=== PATIENT | male | born 1980 | race Caucasian/White ===

== ENCOUNTER 2024-10-27 07:11 | Observation (INO) | payer OTHER, SELFPAY ==
--- NOTE | ~2024-10-27 | CT_ITS ---
EXAMINATION: CT abdomen pelvis w con DATE: 10/27/2024 10:40 INDICATION: Rectal pain. TECHNIQUE: Computed tomography (CT) of the abdomen and pelvis was performed with 100 mL Omnipaque 350 intravenous contrast. Automated exposure control and iterative reconstruction technique were employe d. The dose-length product was 781.00 mGy-cm. COMPARISON: None. FINDINGS: The visualized portions of the lung bases are clear without pneumonia or pleural effusion. The heart size is normal. No pericardial effusion. There is a small sliding hiatal hernia. The liver, gallbladder, spleen, pancreas, adrenal glands, and left kidney are normal. There is a 5 mm cyst in r ight kidney. There are no dilated loops of bowel. The appendix is normal. There is a 1.8 x 1.3 x 1.3 cm perianal abscess. There are no pathologically enlarged lymph nodes. There is no free intraperitone al fluid. There is mild thoracic and lumbar spondylosis. IMPRESSION: 1. 1.8 x 1.3 x 1.3 cm perianal abscess. Reviewed, dictated and finalized at location A. P [facility]ILLER
[2024-10-27 07:24] VITALS: BP 123/84; PULSE 118; RESP 18; TEMP 36.3; O2SAT 96
[2024-10-27] MEDS: ACETAMINOPHEN 500 MG TABLET 1000 MG PO (09:34)
[2024-10-27] MEDS: KETOROLAC 15 MG/ML VIAL (*BKC) IV PUSH (09:35)
[2024-10-27 09:44] LABS: Basophils Percent Auto 0.2 % (0.2-1.2); Eosinophils Absolute Auto 0.1 K/mm3 (0-0.3); Eosinophils Percent Auto 0.5 % (0-4.4); Hematocrit 43.3 % (42.0-52.0); Hemoglobin 14.6 g/dL (14.0-18.0); Immature Granulocyte Absolute 0.06 K/mm3 (0.00-0.031); Immature Granulocyte Percent A 0.4 % (0-0.5); Lymphocytes Absolute Auto 1.46 K/mm3 (0.9-3.2); Lymphocytes Percent Auto 10.3 % (18.3-44.2); Mean Corpuscular HGB Conc 33.7 g/dl (32-36); Mean Corpuscular Hemoglobin 30.4 pg (26-34); Mean Platelet Volume 9.4 fl (7.4-10.4); Monocytes Percent Auto 6.8 % (2.6-8.5); Neutrophils Absolute Auto 11.6 K/mm3 (1.3-6.7); Neutrophils Percent Auto 81.8 % (45.5-73.1); Platelet Count Result 262 k/mm3 (150-375); Red Blood Count 4.81 M/mm3 (4.6-6.20); Red Cell Distribution Width 12.4 % (11.5-14.5); White Blood Count 14.1 K/mm3 (4.5-10.0)
[2024-10-27 10:11] LABS: Alanine Aminotransferase 55 U/L (6-50); Albumin Level 4.2 g/dL (3.5-5.1); Alkaline Phosphatase 82 U/L (38-126); Anion Gap 10 mmol/L (4-12); Aspartate Amino Transferase 39 U/L (17-59); Bilirubin,Total 0.8 mg/dL (0.2-1.3); Blood Urea Nitrogen 12 mg/dL (9-20); Carbon Dioxide 24 mmol/L (22-30); Chloride 106 mmol/L (98-107); Estimated CRCL calculation 111 ml/min; Estimated Glomerular Filt Rate > 60; Glucose 121 mg/dL (65-110); Potassium 4.3 mmol/L (3.4-5.0); Sodium 140 mmol/L (137-145)
[2024-10-27 10:20] VITALS: BP 135/80; PULSE 79; RESP 18; O2SAT 96
[2024-10-27 10:42] VITALS: BP 142/68; PULSE 82; RESP 18; O2SAT 96
--- NOTE | 2024-10-27 11:01 | ED_ITS ---
HPI - General Adult General Chief complaint: Unspecified Stated complaint: Rectal pain Time Seen by Provider: 10/27/24 07:52 History of Present Illness HPI narrative: This is a 44-year-old male presenting ED with chief complaint of rectal pain. Over the last 2 days patient is reporting pain in his rectum. He is not having any bleeding or hemorrhoids that he is aware of. He denies fevers chills or abdominal pain. Last bowel movement was 2 days ago. Related Data Allergies Allergy/AdvReac Type Severity Reaction Status Date / Time No Known Allergies Allergy Verified 10/27/24 09:33 Exam Narrative: APPEARANCE: No apparent distress. Head: atraumatic. EYES: EOMI, NOSE: Atraumatic NECK: Trachea midline RESPIRATORY: No increased rate of breathing CARDIOVASCULAR: RRR, ABDOMINAL: Non-distended , soft nontender rectal exam: erythema and tenderness on the rectum. No visible hemorrhoids. MUSCULOSKELETAl: No obvious deformities NEURO: Alert. Moving 4/4 extremities SKIN:: Warm, dry. Normal color PSYCHIATRIC: Normal affect Course Vital Signs Vital signs: Vital Signs Temperature 97.4 F L 10/27/24 07:24 Pulse Rate 118 H 10/27/24 07:24 Respiratory Rate 18 10/27/24 07:24 Blood Pressure 123/84 10/27/24 07:24 Pulse Oximetry 96 10/27/24 07:24 Oxygen Delivery Room Air 10/27/24 07:24 Temperature 97.4 F L 10/27/24 07:24 Pulse Rate 82 10/27/24 10:42 Respiratory Rate 18 10/27/24 10:42 Blood Pressure 142/68 H 10/27/24 10:42 Pulse Oximetry 96 10/27/24 10:42 Oxygen Delivery Room Air 10/27/24 07:24 Medical Decision Making [facility] Narrative Medical decision making narrative: -Course: 44-year-old male presenting with rectal pain. CT abdomen pelvis shows a perianal abscess. White count is elevated at 14. Patient tachycardic at 120 on arrival. Given 30 cc/kilogram fluid resusc, abx, and pain control. Consult placed to generalsurgery. patient will be admitted for further management. -DDX includes but is not limited to: perianal cellulitis, jose e-anal abscess, hemorrhoids, colitis -Independent interpretation of studies: labs imaging/ reviewed -Discussion of Management/Consultants: Gilbert -Shared decision making / Disposition: admitted. Vital Signs Vital Signs: Vital Signs Temperature 97.4 F L 10/27/24 07:24 Pulse Rate 118 H 10/27/24 07:24 Respiratory Rate 18 10/27/24 07:24 Blood Pressure 123/84 10/27/24 07:24 Pulse Oximetry 96 10/27/24 07:24 Oxygen Delivery Room Air 10/27/24 07:24 Temperature 97.4 F L 10/27/24 07:24 Pulse Rate 82 10/27/24 10:42 Respiratory Rate 18 10/27/24 10:42 Blood Pressure 142/68 H 10/27/24 10:42 Pulse Oximetry 96 10/27/24 10:42 Oxygen Delivery Room Air 10/27/24 07:24 Lab Data 10/27/24 09:32 10/27/24 09:32 Labs: Lab Results 10/27/24 Range/Units 09:32 WBC 14.1 H (4.5-10.0) K/mm3 RBC 4.81 (4.6-6.20) M/mm3 Hgb 14.6 (14.0-18.0) g/dL Hct 43.3 (42.0-52.0) % MCV 90.0 (80-100) fl MCH 30.4 (26-34) pg MCHC 33.7 (32-36) g/dl RDW 12.4 (11.5-14.5) % Plt Count 262 (150-375) k/mm3 MPV 9.4 (7.4-10.4) fl Immature Gran % (Auto) 0.4 (0-0.5) % Neut % (Auto) 81.8 H (45.5-73.1) % Lymph % (Auto) 10.3 L (18.3-44.2) % [place] % (Auto) 6.8 (2.6-8.5) % Eos % (Auto) 0.5 (0-4.4) % Baso % (Auto) 0.2 (0.2-1.2) % Lymph # (Auto) 1.46 (0.9-3.2) K/mm3 [place] # (Auto) 1.0 H (0.1-0.6) K/mm3 Eos # (Auto) 0.1 (0-0.3) K/mm3 Baso # (Auto) 0.0 (0.0-0.1) K/mm3 Abs Immat Gran (auto) 0.06 H (0.00-0.031) K/mm3 Absolute Neuts (auto) 11.6 H (1.3-6.7) K/mm3 Absolute Nucleated RBC 0.000 (0.0-0.012) K/mm3 Nucleated RBC % 0.0 (0.0-0.2) % Sodium 140 (137-145) mmol/L Potassium 4.3 (3.4-5.0) mmol/L Chloride 106 (98-107) mmol/L Carbon Dioxide 24 (22-30) mmol/L Anion Gap 10 (4-12) mmol/L BUN 12 (9-20) mg/dL Creatinine 1.00 (0.7-1.3) mg/dL Estim Creat Clear Calc 111 ml/min Estimated GFR > 60 (59 - ) Glucose 121 H (65-110) mg/dL Calcium 9.0 (8.4-10.2) mg/dL Total Bilirubin 0.8 (0.2-1.3) mg/dL AST 39 (17-59) U/L ALT 55 H (6-50) U/L Alkaline Phosphatase 82 (38-126) U/L Total Protein 7.0 (6.3-8.2) g/dL Albumin 4.2 (3.5-5.1) g/dL Discharge Plan Discharge Clinical Impression: Perianal abscess Patient Disposition: Still a Patient Condition: Stable Follow-up/Referrals: UNKNOWN,DOCTOR [Primary Care Provider] -
[2024-10-27] MEDS: SODIUM CHLORIDE 0.9% IV 1,000 ML 999 ML IV CONT ×3 (11:25→12:01)
[2024-10-27] MEDS: PIPERACILLN/TAZ 3.375GM/NS50ML 3.375 GM/50 ML BAG IVPB ×3 (11:26→23:45)
[2024-10-27 12:19] VITALS: BMI 30.4
--- NOTE | 2024-10-27 12:29 | ADMGEN ---
This patient, Mushtaq Anderson, was admitted to [facility] Surg Room 330-01. Patient/family oriented to hospital policies and general routines including ID bracelet, bed and alarms, visiting hours, pain management, procedures, bathroom and other care routines, personal items, smoking policy, room service/diet, and visiting hours. Information on how to activate the Rapid Response Team has been discussed. Patient/Family are encouraged to report perceived risks to care and to ask questions if they do not understand what they are told or what they should do.
[2024-10-27 13:52] VITALS: BP 140/80; PULSE 84; RESP 18; TEMP 36.9; O2SAT 97
--- NOTE | 2024-10-27 15:45 | P.HP_ITS ---
H&P: HPI History of Present Illness Date/Time: 10/27/24 15:45 Chief Complaint: Perirectal pain Narrative: This is a 44-year-old man who presented to the ED with complaints of rectal pain for 2 days. He initially noticed some tenderness in the area. The pain has progressively gotten worse over the last 2 days. He denies any drainage or blood in his stool. He denies any fevers or chills. He denies a history of any perirectal abscess in the past. In the ED, he was afebrile but tachycardic with heart rate in the 120s. Labs showed a white blood cell count of 14,100. CT scan of the abdomen and pelvis wit h contrast shows a 1.8 x 1.3 x 1.3 cm perianal abscess. He is now admitted in this setting and has been started on IV Zosyn. He received 3 L of IV fluids in the ER. His tachycardia has resolved. Blood cultures were also drawn in the ER. He is now seen on the medical floor. He denies any previous surgical history. He has never had a colonoscopy. His glucose was mildly elevated on admission. He denies any history of diabetes and has actually not seen any medical provider in over 10 years. Review of Systems Review of Systems: All systems reviewed & are unremarkable except as noted in HPI and below PMFSH Past Medical History Medical History No pertinent past medical history Surgical History Surgical History No pertinent past surgical history Social History Social History Years smoked: 20 Smoking status: Current every day smoker Tobacco type: e-cigarettes/vaping Alcohol intake: current Drinks per week: 3 Substance use: current Substance use type: marijuana Last use: Marijuana 10/27/24 Do You Feel Safe in your Home?: Yes Lack of Transportation: No Lack of Food: Never True Current Housing: I Have Housing Concerned About Future Housing: No Difficulty Paying Gas/Electric Bills: No Difficulty Paying for Meds: No Currently Unemployed: No Education: Trade/Vocational Certificate Difficulty w/ Childcare or Family Care: No Spiritual care concerns: Yes (Restorationist) Meds Home Medications and Allergies Home Medications Medication Instructions Recorded Confirmed Type multivitamin with minerals-folic 120 tablet PO DAILY 10/27/24 10/27/24 History acid 120 mcg chewable tablet (Men's Multivitamin Gummies) Allergies Allergy/AdvReac Type Severity Reaction Status Date / Time No Known Allergies Allergy Verified 10/27/24 09:33 Vital Signs Vital Signs - 24 hr 10/27/24 07:24 10/27/24 10:20 10/27/24 10:42 Temperature 97.4 F L Pulse Rate 118 H 79 82 Respiratory Rate 18 18 18 Blood Pressure 123/84 135/80 142/68 H Pulse Oximetry 96 96 96 Oxygen Delivery Room Air 10/27/24 13:49 10/27/24 13:52 Temperature 98.4 F Pulse Rate 84 Respiratory Rate 18 Blood Pressure 140/80 Pulse Oximetry 97 Oxygen Delivery Room Air Exam Const: General: comfortable and no acute distress Nutritional Appearance: average body habitus Orientation/consciousness: patient oriented x3 HENMT: Head: normocephalic and atraumatic Ears: hearing grossly normal bilaterally Mouth: Yes moist mucous membranes Eyes: General: appearance normal, both eyes and all related structures Pupils: Equal, round and reactive pupils present Neck: Neck: normal visual inspection and full ROM Resp: Effort & Inspection: no respiratory distress Auscultation: clear to auscultation bilaterally Cardio: Rate: regular rate Rhythm: regular rhythm Heart sounds: S1 normal heart sound present and S2 normal heart sound present GI: Inspection: non-distended GI Palp: Yes Soft to palpation, No Tenderness to palpation present (GI), No Guarding due to palpation present (GI), Yes No hep atosplenomegaly present, No Hernia present and No Rebound tenderness present Percussion: Yes normal to percussion Auscultation: normal bowel sounds Other: Digital rectal exam deferred due to pain. On inspection, there is erythema and induration posteriorly just to the left of midline, nearly at the anal verge with no drainage and point tenderness in this area. No significant fluctuance. Skin: General skin exam: normal color Neuro: General: moves all extremities and no focal motor deficits Speech: normal speech Motor exam (neuro): 5/5 motor strength present throughout Extrem: General: normal to inspection and no edema Psych: Mental Status: mental status grossly normal Attitude: cooperative Insight: Good insight present (Psych) Judgement: Good judgement present (Psych) H&P: Results Labs Labs: Short CBC 10/27/24 Range/Units 09:32 WBC 14.1 H (4.5-10.0) K/mm3 Hgb 14.6 (14.0-18.0) g/dL Hct 43.3 (42.0-52.0) % Plt Count 262 (150-375) k/mm3 BMP 10/27/24 09:32 Sodium 140 Potassium 4.3 Chloride 106 Carbon Dioxide 24 BUN 12 Creatinine 1.00 Glucose 121 H Calcium 9.0 Liver Function 10/27/24 Range/Units 09:32 Total Bilirubin 0.8 (0.2-1.3) mg/dL AST 39 (17-59) U/L ALT 55 H (6-50) U/L Alkaline Phosphatase 82 (38-126) U/L Albumin 4.2 (3.5-5.1) g/dL Imaging CT scan - abdomen: Radiologist's impression: ITS Impressions Abdomen/Pelvis CT 10/27/24 10:43 IMPRESSION: 1. 1.8 x 1.3 x 1.3 cm perianal abscess. Assessment and Plan Assessment and plan (1) Perianal abscess: Code(s): K61.0 - Anal abscess Status: Acute Assessment and Plan: Patient presents with perirectal pain x [address] evidence of a 1.8 cm perianal abscess. WBC count is elevated at 14,000. On exam, I am able to see the perianal abscess in the left posterior area that is mostly indurated. Will continue IV antibiotics for now and allow him to eat a regular diet today. Will monitor this area over the next few days and we can consider proceeding with incision and drainage of the perianal abscess once it becomes more fluctuant. Will make him NPO after midnight just in case he would need to be added on for surgery depending on his exam tomorrow. Will repeat labs tomorrow as well. (2) SIRS (systemic inflammatory response syndrome): Code(s): R65.10 - Systemic inflammatory response syndrome (SIRS) of non-infectious origin without acute organ dysfunction Status: Acute Assessment and Plan: Leukocytosis and tachycardia in the setting of perianal abscess. Continue IV antibiotics. Blood cx were drawn and he received adequate fluid resuscitation in the ER. Tachycardia has resolved. See plan above. Plan I have discussed the patient's case and plan of care with Dr. Hunt.
[2024-10-27] MEDS: HYDROcodone/acetaminophen (*CRX) 5-325 MG TABLET 1 TAB PO ×2 (16:29→23:45)
[2024-10-27] MEDS: IBUPROFEN 600 MG TABLET PO (20:59)
[2024-10-27 21:24] VITALS: BP 133/59; PULSE 82; RESP 16; TEMP 37.3; O2SAT 96
[2024-10-27] MEDS: SODIUM CHLORIDE 0.9% IV 1,000 ML 80 ML IV CONT (23:45)
[2024-10-28] VITALS (8 sets, daily range): BP systolic 99–149; BP diastolic 58–86; PULSE 81–97; RESP 16–18; TEMP 36.3–37.1; O2SAT 96–99
[2024-10-28] MEDS: PIPERACILLN/TAZ 3.375GM/NS50ML 3.375 GM/50 ML BAG IVPB ×2 (05:34→11:06)
[2024-10-28] MEDS: HYDROcodone/acetaminophen (*CRX) 5-325 MG TABLET 1 TAB PO (05:34)
[2024-10-28 06:49] LABS: Hematocrit 40.8 % (42.0-52.0); Hemoglobin 13.4 g/dL (14.0-18.0); Mean Corpuscular HGB Conc 32.8 g/dl (32-36); Mean Corpuscular Hemoglobin 30.1 pg (26-34); Mean Corpuscular Volume 91.7 fl (80-100); Mean Platelet Volume 9.5 fl (7.4-10.4); Platelet Count Result 248 k/mm3 (150-375); Red Blood Count 4.45 M/mm3 (4.6-6.20); Red Cell Distribution Width 12.4 % (11.5-14.5); White Blood Count 14.1 K/mm3 (4.5-10.0)
[2024-10-28 07:00] LABS: Anion Gap 5 mmol/L (4-12); Blood Urea Nitrogen 7 mg/dL (9-20); Calcium 8.6 mg/dL (8.4-10.2); Carbon Dioxide 26 mmol/L (22-30); Chloride 107 mmol/L (98-107); Estimated CRCL calculation 123 ml/min; Estimated Glomerular Filt Rate > 60; Glucose 113 mg/dL (65-110); Potassium 4.2 mmol/L (3.4-5.0); Sodium 138 mmol/L (137-145)
[2024-10-28] MEDS: LIDO 1%/EPINEPHRINE 1:100,000 20 ML VIAL INFILTRATE (07:29)
[2024-10-28] MEDS: LACTATED RINGERS 1,000 ML 30 ML IV CONT (07:30)
--- NOTE | 2024-10-28 07:31 | P.PNAN_ITS ---
Anes - Initial Pre Proc Eval Procedure: Operation Date: 10/28/24 07:30 Proposed Procedures p I&D Alma-Rectal Abscess(Not Applicable) - Alexy Hunt MD Date/Time: 10/28/24 07:31 Surgeon: Alexy uHnt MD Pre Op Diagnosis: Alma-anal Abscess Patient Data Age: 44 Gender: M Height: 1.88 m Weight: 107.8 kg Last Vital Signs Temp 36.8 C 10/28/24 05:53 Pulse 89 10/28/24 05:53 Resp 18 10/28/24 05:53 BP 136/61 10/28/24 05:53 Pulse Ox 99 10/28/24 05:53 O2 Del Method Room Air 10/27/24 20:00 Allergies Allergy/AdvReac Type Severity Reaction Status Date / Time No Known Allergies Allergy Verified 10/27/24 09:33 Home Medications Medication Instructions Recorded Confirmed Type multivitamin with minerals-folic 1 tablet PO DAILY 10/27/24 10/27/24 History acid 120 mcg chewable tablet (Men's Multivitamin Gummies) Laboratory Tests 10/27/24 10/28/24 09:32 06:13 WBC 14.1 H K/mm3 14.1 H K/mm3 (4.5-10.0) (4.5-10.0) RBC 4.81 M/mm3 4.45 L M/mm3 (4.6-6.20) (4.6-6.20) Hgb 14.6 g/dL 13.4 L g/dL (14.0-18.0) (14.0-18.0) Hct 43.3 % 40.8 L % (42.0-52.0) (42.0-52.0) MCV 90.0 fl 91.7 fl (80-100) (80-100) MCH 30.4 pg 30.1 pg (26-34) (26-34) MCHC 33.7 g/dl 32.8 g/dl (32-36) (32-36) RDW 12.4 % 12.4 % (11.5-14.5) (11.5-14.5) Plt Count 262 k/mm3 248 k/mm3 (150-375) (150-375) MPV 9.4 fl 9.5 fl (7.4-10.4) (7.4-10.4) Immature Gran % (Auto) 0.4 % (0-0.5) Neut % (Auto) 81.8 H % (45.5-73.1) Lymph % (Auto) 10.3 L % (18.3-44.2) [place] % (Auto) 6.8 % (2.6-8.5) Eos % (Auto) 0.5 % (0-4.4) Baso % (Auto) 0.2 % (0.2-1.2) Lymph # (Auto) 1.46 K/mm3 (0.9-3.2) [place] # (Auto) 1.0 H K/mm3 (0.1-0.6) Eos # (Auto) 0.1 K/mm3 (0-0.3) Baso # (Auto) 0.0 K/mm3 (0.0-0.1) Abs Immat Gran (auto) 0.06 H K/mm3 (0.00-0.031) Absolute Neuts (auto) 11.6 H K/mm3 (1.3-6.7) Absolute Nucleated RBC 0.000 K/mm3 (0.0-0.012) Nucleated RBC % 0.0 % (0.0-0.2) Sodium 140 mmol/L 138 mmol/L (137-145) (137-145) Potassium 4.3 mmol/L 4.2 mmol/L (3.4-5.0) (3.4-5.0) Chloride 106 mmol/L 107 mmol/L (98-107) (98-107) Carbon Dioxide 24 mmol/L 26 mmol/L (22-30) (22-30) Anion Gap 10 mmol/L 5 mmol/L (4-12) (4-12) BUN 12 mg/dL 7 L D mg/dL (9-20) (9-20) Creatinine 1.00 mg/dL 0.90 mg/dL (0.7-1.3) (0.7-1.3) Estim Creat Clear Calc 111 ml/min 123 ml/min Estimated GFR > 60 > 60 (59 - ) (59 - ) Glucose 121 H mg/dL 113 H mg/dL (65-110) (65-110) Hemoglobin A1c Pending Calcium 9.0 mg/dL 8.6 mg/dL (8.4-10.2) (8.4-10.2) Total Bilirubin 0.8 mg/dL (0.2-1.3) AST 39 U/L (17-59) ALT 55 H U/L (6-50) Alkaline Phosphatase 82 U/L (38-126) Total Protein 7.0 g/dL (6.3-8.2) Albumin 4.2 g/dL (3.5-5.1) Patient hx anesthesia problems: none Family hx anesthesia problems: none Results Review: All pre-operative results and documents have been reviewed as part of the pre- operative evaluation. [facility] Past Medical History Medical History (Updated 10/28/24 @ 07:31 by Dean Parmar MD) Obesity Surgical History Surgical History No pertinent past surgical history Social History Social History Years smoked: 20 Smoking status: Current every day smoker Tobacco type: e-cigarettes/vaping Alcohol intake: current Drinks per week: 3 Substance use: current Substance use type: marijuana Last use: Marijuana 10/27/24 Do You Feel Safe in your Home?: Yes Lack of Transportation: No Lack of Food: Never True Current Housing: I Have Housing Concerned About Future Housing: No Difficulty Paying Gas/Electric Bills: No Difficulty Paying for Meds: No Currently Unemployed: No Education: Trade/Vocational Certificate Difficulty w/ Childcare or Family Care: No Spiritual care concerns: Yes (Buddhist) Anes - Cassy Final PreProcedure Day of Procedure 10/28/24 07:31 Patient weight: overweight Heart: regular rate and rhythm Lungs: clear to auscultation Airway: Mallampati scale class II Neurological: alert and oriented Last oral intake: >/= 8 hours ASA classification: III Emergent: no Anesthetic plan: proceed Anesthesia type and monitoring: general LMA and standard monitoring Results Review: All pre-operative results and documents have been reviewed as part of the pre- operative evaluation. Informed Consent: The patient's anesthetic plan and its attendant risks and benefits were discussed with the patient/family/POA. Questions were solicited and answers provided to the satisfaction of the patient/family/POA.
--- NOTE | 2024-10-28 07:36 | WPDHPUPDATE1 ---
History and Physical Update Update Date/Time: 10/28/24 07:36 History and Physical has been reviewed, including an updated exam of the patient. There are NO changes in the patient's condition. Risks, benefits, and alternatives have been discussed and questions answered. Patient agrees to proceed with procedure.
[2024-10-28] MEDS: BUPivacaine HCL 0.5% PF 30 ML VIAL 20 ML INFILTRATE (07:39)
[2024-10-28] MEDS: KETOROLAC 15 MG/ML VIAL (*BKC) 30 MG IV PUSH (07:52)
--- NOTE | 2024-10-28 07:55 | PC.NURSE ---
To OR per bed at 0730, IV saline locked.
--- NOTE | 2024-10-28 08:08 | P.OP_ITS ---
Procedure Note - Detailed Date of Procedure 10/28/24 Pre-op Diagnosis Alma-rectal Abscess Post-op Diagnosis Same Procedure Performed Incision and drainage of perirectal abscess Surgeon Alexy Hunt MD Anesthesia General Indications Patient is a 44-year-old white male presented to the emergency room with 2 day h istory of worsening perianal pain. White blood cell count was elevated and CT scan of the pelvis showed a 2cm posterior midline perianal/perirectal abscess. He was admitted to the hospital started on IV antibiotics. He is brought to the operating now for incision and drainage of the perirectal abscess. Findings The patient had a 2 to 3 cm posterior abscess in the midline approximately 5 to 6 o'clock position with the patient in lithotomy. There was no tracking of the abscess laterally. There is no evidence of associated anal fistula. Description of Procedure After informed consent was obtained patient brought to the operating was placed under general LMA anesthesia. He was then placed in the lithotomy position a high stirrups. The perianal region was then prepped and draped usual sterile fashion. Time-out was then performed correctly identifying the patient as well as procedure to be performed. He was already on scheduled IV antibiotics. The fluctuant area the abscess was noted to be a posterior at approximately 5 to 6 o'clock position near the posterior midline with the patient in lithotomy. I used a #11 blade scalpel and incised the abscess over the most fluctuant area radially. Once I made the incision there is copious amounts of foul-smelling pus that drained out of the abscess cavity. Approximately 20 to 30 cc of pus drained. A culture the abscess cavity was obtained and sent to microbiology for Gram stain, aerobic, and anaerobic studies. The incision made was approximately 1-1/2 cm in length. I then placed my finger into the abscess cavity and broke down any loculations. There is no tracking of the abscess cavity laterally. The abscess cavity measured approximately 2 to 3 cm diameter. Patient did have some minor grade 3 hemorrhoids which were nonthrombosed and not bleeding. There did not appear to be any fistulous connection to the inside of the anal canal. On palpation the abscess cavity initially there was no drainage of pus out into the anal canal. I then irrigated out the abscess cavity with copious amounts sterile saline solution. I then achieved hemostasis in the wound by cauterizing the edges that were oozing blood. The wound was then packed tightly with quarter-inch iodoform gauze. Area was then cleaned and then 1% lidocaine mixed with 0.5% Marcaine with epinephrine was injected in the perianal region. I then placed 4x4 gauze and ABD pad and disposable underwear for final dressing. The patient tolerated the procedure well no complications. All sponges, needles, and instrument counts were correct at the end procedure. EBL was 10___cc. The patient was awakened and taken to recovery in stable and satisfactory condition. Implants None Estimated Blood Loss 10 Urine Output 450 Drains No Packing Yes (Quarter-inch iodoform gauze perirectal abscess) Pathology Other (Culture swab of the abscess sent to microbiology) Complications No immediate complications Condition Stable Disposition PACU [facility] Billing Surgery - Charge Forward: Surgery Billing
--- NOTE | 2024-10-28 08:20 | P.DS_ITS ---
DS: Admitting Diagnosis Discharge Date October 28, 2024 Admitting Diagnosis Perirectal abscess DS: Discharge Diagnosis Discharge Diagnosis (1) Perirectal abscess: Code(s): K61.1 - Rectal abscess Status: Acute DS: Summary Hospital Course Reason for hospitalization: Perirectal abscess Hospital Course: Patient given [facility] with a 2 day history of worsening perianal pain. He was seen in the emergency room and diagnosed with a perirectal abscess. He was started on Zosyn for IV antibiotics. He was then admitted to surgical floor. I then examined him on the floor any had a posteriorly positioned in the midline fluctuant area measuring about 2cm. He was kept NPO overnight after midnight and then taken to the operating next day for a incision and drainage of a perirectal abscess under a general anesthetic. Postoperatively into the recovery room was he was doing well and was transferred back to surgical floor. On the surgical floor he was then given a regular diet again which she tolerated well. He has pain was well controlled on oral pain medications. He was discharged home later today in improved condition. He continued with IV antibiotics the was discharged. He will be discharged home with oral antibiotics for another 7 day course. 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 Patient can follow-up see me in my office in 1 week. Status at Discharge Functional status at discharge: independent ambulation Overall status at discharge: patient is back to baseline Time Spent with Patient Time attestation: Total time spent providing and/or coordinating discharge services: Time spent: Less than 30 minutes Exam Skin: Other: Perianal region this is lap position posteriorly with packed wound. No active bleeding. Decreasing induration and redness. No pus drainage. DS: Data Data Completed and Pending Labs on day of discharge: Labs from last 24 hours 10/28/24 10/27/24 06:13 09:32 WBC 14.1 H 14.1 H RBC 4.45 L 4.81 Hgb 13.4 L 14.6 Hct 40.8 L 43.3 MCV 91.7 90.0 MCH 30.1 30.4 MCHC 32.8 33.7 RDW 12.4 12.4 Plt Count 248 262 MPV 9.5 9.4 Immature Gran % (Auto) 0.4 Neut % (Auto) 81.8 H Lymph % (Auto) 10.3 L [place] % (Auto) 6.8 Eos % (Auto) 0.5 Baso % (Auto) 0.2 Lymph # (Auto) 1.46 [place] # (Auto) 1.0 H Eos # (Auto) 0.1 Baso # (Auto) 0.0 Abs Immat Gran (auto) 0.06 H Absolute Neuts (auto) 11.6 H Absolute Nucleated RBC 0.000 Nucleated RBC % 0.0 Sodium 138 140 Potassium 4.2 4.3 Chloride 107 106 Carbon Dioxide 26 24 Anion Gap 5 10 BUN 7 L D 12 Creatinine 0.90 1.00 Estim Creat Clear Calc 123 111 Estimated GFR > 60 > 60 Glucose 113 H 121 H Hemoglobin A1c Pending Calcium 8.6 9.0 Total Bilirubin 0.8 AST 39 ALT 55 H Alkaline Phosphatase 82 Total Protein 7.0 Albumin 4.2 Discharge Plan Discharge Attending physician on discharge: Alexy Hunt Discharging Clinician: Alexy Hunt Anticipated Discharge Date/Time: 10/28/24 15:00 Patient Disposition: Home, Self-Care Activity: other - see discharge instructions Diet: regular Wound Care Instructions: other - see discharge instructions Discharge Instructions: Patient to remove packing tomorrow. We will need to be repacked with quarter- inch iodoform gauze. Change gauze after events. Cleaning after bowel movements with Sitz baths or showering. Follow-up with Dr. Hunt in the office in 1 week. Patient to call [phone] for an appointment. Continue to pack the wound once a day and changing after bowel movements until seen in the office. Patient Instructions: Antibiotic Form, How to Stop Smoking (GEN) Stand Alone Forms: General Discharge Information Follow-up/Referrals: Alexy Hunt MD [Physician] - Discharge Medications: New amoxicillin-pot clavulanate 875-125 mg tablet 1 tablet PO Q12H Qty: 15 0RF Continued multivit with min-folic acid [Men's Multivitamin Gummies] 120 mcg Tablet,Chewable 1 tablet PO DAILY Date of admission: 10/27/24 13:00 Primary Care Provider: UNKNOWN,DOCTOR Admitting Provider: Alexy Hunt Attending physician on admission: Alexy Hunt Condition: Stable
[2024-10-28] MEDS: fentaNYL CITRATE INJ (*CRX) 100 MCG/2 ML VIAL 25 MCG IV PUSH ×4 (08:25→08:40)
[2024-10-28 08:57] LABS: Hemoglobin A1C 5.5 % (<5.7)
--- NOTE | 2024-10-28 10:01 | PC.NURSE ---
Returned from OR per bed at 0910. Report received from KAROL Tineo.
== END 2024-10-28 11:55 | disposition home or self-care (01) ==
LOC: ANHED 11:12 → ANH3MEDSUR 11:55
PROVIDERS: Nurse Practitioner Family; Admitting Provider Surgery; Emergency Provider Emergency Medicine; Visit Provider Surgery
PROC: (CPT 46040; principal; 2024-10-28 07:30)
DX: K61.1 Rectal abscess (principal); K64.2 Third degree hemorrhoids; F17.290 Nicotine dependence, other tobacco product, uncomplicated
CPT/HCPCS: 46040; 36415; 74177; 80048; 80053; 83036; 85025; 85027; 87040; 87070; 87075; 87076; 87186; 87205; 96365; 96375; 99285; A9270; G0378; J1100; J1885; J2003; J2004; J2250; J2405; J2543; J2704; J3010; J7030; J7120; Q9967